=== PATIENT | male | born 1955 | race Caucasian/White ===

== ENCOUNTER 2018-06-09 16:24 | Emergency (ER) | payer SELFPAY ==
[~2018-06-09] VITALS: Ht 180.3 cm; Wt 88.5 kg
[2018-06-09 17:22] VITALS: BP 181/104
--- NOTE | 2018-06-09 18:29 | PHYS DOC ---
Past Medical History Past Medical History: Asthma Past Surgical History: No Surgical History Additional Information: Denies smoking Alcohol Use: Occasionally Drug Use: None Adult General Chief Complaint Chief Complaint: ANKLE PROBLEM [facility] HPI Patient is a 62 year old male who presents with complaining of left ankle pain. Patient complaining of left ankle medial malleolus pain and erythema since yesterday without known injury since yesterday as a constant pain that getting worse with touching and walking and rated his pain 8/10. Patient denies history of the same problem or gout arthritis. Patient denies having any medical problems except for asthma. Patient states he took ibuprofen with mild improvement of his pain. Review of Systems Review of Systems Constitutional: Denies fever or chills [] Eyes: Denies change in visual acuity, redness, or eye pain [] HENT: Denies nasal congestion or sore throat [] Respiratory: Denies cough or shortness of breath [] Cardiovascular: No additional information not addressed in HPI [] GI: Denies abdominal pain, nausea, vomiting, bloody stools or diarrhea [] : Denies dysuria or hematuria [] Musculoskeletal: Denies back pain, reports joint pain [] Integument: Denies rash or skin lesions [] Neurologic: Denies headache, focal weakness or sensory changes [] Endocrine: Denies polyuria or polydipsia [] All other systems were reviewed and found to be within normal limits, except as documented in this note. Allergies Allergies Allergies Coded Allergies Type Severity Reaction Last Updated Verified Sulfa (Sulfonamide Antibiotics) Allergy Unknown 06/09/18 Yes Physical Exam Physical Exam Constitutional: Well developed, well nourished, mild distress, non-toxic appearance. [] HENT: Normocephalic, atraumatic Eyes: PERRLA, EOMI, conjunctiva normal, no discharge. [] Neck: Normal range of motion, no tenderness, supple, no stridor. [] Cardiovascular:Heart rate regular rhythm, no murmur [] Lungs & Thorax: Bilateral breath sounds clear to auscultation [] Skin: Warm, dry, no rash, erythema and warmness in skin of left ankle medial malleolus without sign of abscess or infection. Back: No tenderness, no CVA tenderness. [] Extremities: Left medial malleolus with tenderness and erythema and warmness painful range of motion without bony deformity or neurovascular deficit. Neurologic: Alert and oriented X 3, normal motor function, normal sensory function, no focal deficits noted. [] Psychologic: Affect normal, judgement normal, mood normal. [] Current Patient Data Vital Signs Vital Signs Date Time Temp Pulse Resp B/P (MAP) Pulse Ox O2 Delivery O2 Flow Rate FiO2 06/09/18 17:22 98.6 92 16 181/104 (129) 96 Room Air 98.6 EKG EKG [] Radiology/Procedures Radiology/Procedures [facility] [address] [place] [address] IMAGING REPORT Signed PATIENT: SIOMARA PACKER ACCOUNT: [id number] : 1955 LOCATION: ER AGE: 62 SEX: M EXAM STATUS: DEP ER ORD. PHYSICIAN: TIMOTEO NAPIER MD REASON: pain without injury PROCEDURE: ANKLE LEFT 3V Examination: ANKLE LEFT 3V History: pain and swelling, no recent injury Comparison/Correlation: None Findings: Total 3 images of the left ankle were obtained. Ankle joint mortise is unremarkable. Moderate-sized calcaneal spur is present. No acute fracture or bony destructive change. Mild soft tissue swelling about the lateral malleolus is present. Os trigonum is present. Impression: Mild soft tissue swelling about the lateral aspect. Electronically signed by: Jaswinder Castillo MD (06/09/2018 10:20 PM) [facility] DICTATED and SIGNED BY: JASWINDER CASTILLO MD DATE: 06/09/182219 Course & Med Decision Making Course & Med Decision Making Pertinent Imaging studies reviewed. (See chart for details) Evaluation of patient in ER showed 62-year-old male patient with complaining of pain in left medial malleolus since yesterday without injury. Patient has sign of gout and did not want to have pain medication in ER. X-ray did not show acute finding. [place] did not want arthrocentesis for confirming of diagnosis of gout. Plan discharge patient home with diagnosis of acute gouty arthritis. Dragon Disclaimer Dragon Disclaimer This electronic medical record was generated, in whole or in part, using a voice recognition dictation system. Departure Departure Disposition: HOME, SELF-CARE (at 1823) Admitting Physician: Shirley Black (Accepted admission at 1827) Condition: STABLE Referrals: NO PCP (PCP) Patient Instructions: Gout Additional Instructions: Drink plenty of liquids Follow-up with your primary care physician in 3-5 days Return to ER if not getting better Scripts Prednisone (PREDNISONE) 50 Mg Tablet 1 TAB PO DAILY, #5 TAB Prov: TIMOTEO NAPIER MD 06/09/18 Hydrocodone/Apap 5-325 (NORCO 5-325 TABLET) 1 Each Tablet 1 TAB PO PRN Q6HRS PRN for PAIN, #15 TAB 0 Refills Prov: TIMOTEO NAPIER MD 06/09/18 Naproxen (NAPROSYN) 500 Mg Tablet 1 TAB PO BID for pain, #20 TAB Prov: TIMOTEO NAPIER MD 06/09/18 TIMOTEO NAPIER MD Jun 09, 2018 18:29
[2018-06-09] MEDS ORDERED: NAPR-683 PO (18:41)
[2018-06-09] MEDS ORDERED: HYDR-3164 PO (18:41)
[2018-06-09] MEDS ORDERED: PRED50TA PO (18:41)
--- NOTE | 2018-06-09 22:24 | RAD ---
Examination: ANKLE LEFT 3V History: pain and swelling, no recent injury Comparison/Correlation: None Findings: Total 3 images of the left ankle were obtained. Ankle joint mortise is unremarkable. Moderate-sized calcaneal spur is present. No acute fracture or bony destructive change. Mild soft tissue swelling about the lateral malleolus is present. Os trigonum is present. Impression: Mild soft tissue swelling about the lateral aspect. Electronically signed by: Jaswinder Meng MD (06/09/2018 10:20 PM) [facility]
== END 2018-06-09 18:51 | disposition home or self-care (01) ==
LOC: ER 16:24
DX: M10.9 Gout, unspecified (principal); M25.572 Pain in left ankle and joints of left foot; M77.32 Calcaneal spur, left foot; J45.909 Unspecified asthma, uncomplicated; Z88.2 Allergy status to sulfonamides
CPT/HCPCS: 73610; 99283